=== PATIENT | female | born 1955 | race Caucasian/White ===

== ENCOUNTER → 2021-08-19 | Outpatient (CLI) | payer MEDICARE, OTHER ==
[2021-08-19 10:53] LABS: SYNOVIAL FL. MONONUCLEAR 55.5 % (0-75); SYNOVIAL FLUID RBC 70000 /mm3 (0-0); SYNOVIAL FLUID WBC 1371 /mm3 (200-600)
[2021-08-19 10:57] LABS: SYNOVIAL FLUID APPEARANCE CLOUDY; SYNOVIAL FLUID COLOR RED
== END ==
LOC: ZCOL.LAB 09:42
PROVIDERS: Orthopaedic Surgery
DX: Z01.89 Encounter for other specified special examinations (principal)